=== PATIENT | male | born 1970 | race Caucasian/White ===

== ENCOUNTER 2019-12-26 19:05 | Observation (INO) | payer MEDICAID, SELFPAY ==
[2019-12-26 19:04] VITALS: BP 149/108; PULSE 117; RESP 18; TEMP 36.8; O2SAT 95
--- NOTE | 2019-12-26 19:26 | ED.PSYCH ---
HPI - Psych General Chief Complaint: Psychiatric Symptoms <Jus Valladares MD - Last Filed: 12/27/19 06:45> Stated Complaint: ETOH <Jus Valladares MD - Last Filed: 12/27/19 06:45> Time Seen by Provider: 12/26/19 19:07 <Jus Valladares MD - Last Filed: 12/27/19 06:45> History of Present Illness HPI Narrative: Patient is a 49-year-old male who presents ER with suicidal ideation and alcohol intoxication. He was found by police [place] sleeping with a guitar, backpack and other personal effects. He is hitchhiking from [place] to [facility]. He wants to go visit his mom in [place] where she is buried. His plan after sent by to her in [place] is to walk across the street to the gas station by as much alcohol as possible to then kill himself with alcohol intoxication. Patient reports she is been drinking some steel reserve cans of beer today. He reports he has history of trying to kill himself several years ago with a gun but has no access to firearms at this time and that is not his current plan to harm himself. No hallucinations. Does not want to hurt anybody else. Patient reports that he has felt febrile and has diarrhea but also reports that he has chronic diarrhea related to his cirrhosis. No dyspnea or cough. <Jus Valladares MD - Last Filed: 12/27/19 06:45> Related Data Allergies/Adverse Reactions: Allergies Allergy/AdvReac Type Severity Reaction Status Date / Time No Known Allergies Allergy Unverified 03/27/17 15:30 <Jus Valladares MD - Last Filed: 12/27/19 06:45> Review of Systems Review of Systems: All systems reviewed & are unremarkable except as noted in HPI and below <Jus Valladares MD - Last Filed: 12/27/19 06:45> Constitutional: Constitutional: Denies chills, Reports fever(s) and Denies weakness <Jus Valladares MD - Last Filed: 12/27/19 06:45> ENT: Denies nasal congestion and Denies sore throat <Jus Valladares MD - Last Filed: 12/27/19 06:45> Cardiovascular: Cardiovascular: Denies chest pain <Jus Valladares MD - Last Filed: 12/27/19 06:45> Respiratory: Respiratory: Denies cough and Denies dyspnea <Jus Valladares MD - Last Filed: 12/27/19 06:45> Gastrointestinal: Gastrointestinal: Denies abdominal pain, Reports diarrhea, Denies nausea and Denies vomiting <Jus Valladares MD - Last Filed: 12/27/19 06:45> PMFSH Past Medical History Medical History: Medical History (Updated 12/27/19 @ 18:20 by Nemesio Pearl MD) Abdominal wall hernia Cirrhosis of liver <Jus Valladares MD - Last Filed: 12/27/19 06:45> Surgical History Surgical History: Surgical History (Updated 12/26/19 @ 19:29 by Jus Valladares MD) No pertinent past surgical history <Jus Valladares MD - Last Filed: 12/27/19 06:45> Social History Social History: Social History (Updated 12/26/19 @ 19:29 by Jus Valladares MD) Alcohol intake: current <Jus Valladares MD - Last Filed: 12/27/19 06:45> Exam Narrative: Exam Narrative: GENERAL: Well-appearing, well-nourished, and in no acute distress. HEAD: Normocephalic, atraumatic. EYES: PERRL and EOMI. CHEST: Clear to auscultation. No respiratory distress. HEART: Tachycardic and regular. Normal peripheral pulses. ABDOMEN: Soft, firm enlarged liver right upper quadrant, ventral hernia is reducible, normal active bowel sounds. EXTREMITIES: Normal range of motion. 1+ edema. SKIN: Warm, dry, no rash. NEURO: Alert and oriented x3. PSYCH: Normal mood and affect but reports suicidality. No auditory hallucinations. No HI. <Jus Valladares MD - Last Filed: 12/27/19 06:45> Course Course Emergency Course: At the time of evaluation by crisis he was vomiting and they felt that he was not a good candidate for psychiatric placement at this time. Will plan to admit for observation. He is displaying no signs of acute withdrawal at this time. This seems to be most likely alcoh
[2019-12-26 19:45] VITALS: BP 135/100; PULSE 102; RESP 20
[2019-12-26 19:58] LABS: Add Urine Microscopic? YES; Amorphous Sediment Urine Few; Appearance Urine Clear (Clear); Bacteria Urine Trace /hpf; Bilirubin Urine Negative (Negative); Blood Urine Negative (Negative); Color Urine Yellow (Yellow); Glucose Urine UA Negative (Negative); Ketones Urine Negative (Negative); Leukocyte Esterase Ur Negative LEU/UL (Negative); Nitrate Urine Negative (Negative); Protein Urine Negative (Negative); RBC Urine 0-2 /hpf (0-2); Specific Grav Ur 1.005 (1.001-1.035); Squamous Epithelial Cell Urine Rare /hpf (Few); WBC Urine 0-3 /hpf
[2019-12-26 20:08] LABS: Amphetamine Screen Urine Negative (Negative); Barbiturate Screen Urine Negative (Negative); Benzodiazepines Screen Urine Negative (Negative); Cannabinoid Screen Urine Negative (Negative); Cocaine Screen Urine Negative (Negative); Methadone Screen Urine Negative (Negative); Opiate Screen Urine Negative (Negative); Phencyclidine Screen Urine Negative (Negative)
[2019-12-26 20:37] LABS: Basophils Percent Auto 0.2 % (0.2-1.2); Eosinophils Percent Auto 0.9 % (0-4.4); Hematocrit 31.5 % (42.0-52.0); Hemoglobin 10.3 g/dL (14.0-18.0); Immature Granulocyte Absolute 0.01 K/mm3 (0.00-0.031); Immature Granulocyte Percent A 0.2 % (0-0.5); Immature Platelet Fraction Pct 1.9 % (0.9-11.2); Lymphocytes Absolute Auto 1.13 K/mm3 (0.9-3.2); Lymphocytes Percent Auto 25.6 % (18.3-44.2); Mean Corpuscular HGB Conc 32.7 g/dl (32-36); Mean Corpuscular Hemoglobin 26.6 pg (26-34); Mean Corpuscular Volume 81.4 fl (80-100); Mean Platelet Volume 8.6 fl (7.4-10.4); Monocytes Absolute Auto 0.4 K/mm3 (0.1-0.6); Monocytes Percent Auto 8.2 % (2.6-8.5); Neutrophils Absolute Auto 2.9 K/mm3 (1.3-6.7); Neutrophils Percent Auto 64.9 % (45.5-73.1); Platelet Count Result 80 k/mm3 (150-375); Red Blood Count 3.87 M/mm3 (4.6-6.20); Red Cell Distribution Width 17.3 % (11.5-14.5); White Blood Count 4.4 K/mm3 (4.5-10.0)
[2019-12-26 20:48] LABS: Alanine Aminotransferase 36 U/L (4-50); Alkaline Phosphatase 112 U/L (38-126); Ammonia 23 umol/L (9-30); Aspartate Amino Transferase 102 U/L (17-59); Bilirubin,Total 1.1 mg/dL (0.2-1.3); Blood Urea Nitrogen 3 mg/dL (9-20); Calcium 8.2 mg/dL (8.4-10.2); Carbon Dioxide 26 mmol/L (22-30); Chloride 109 mmol/L (98-107); Estimated CRCL calculation 165 ml/min; Estimated Glomerular Filt Rate > 60; Glucose 100 mg/dL (75-110); Potassium 3.8 mmol/L (3.4-5.0); Sodium 142 mmol/L (137-145)
[2019-12-26 21:00] LABS: Ethanol 475 mg/dL (<10)
[2019-12-26 21:18] LABS: Thyroid Stimulating Hormone 0.546 uIU/mL (0.465-4.680)
[2019-12-27] VITALS (26 sets, daily range): BP systolic 125–140; BP diastolic 64–84; PULSE 65–111; RESP 13–20; TEMP 36.6; O2SAT 95–100; BMI 29.0
[2019-12-27 06:33] LABS: Ethanol 213 mg/dL (<10)
--- NOTE | 2019-12-27 07:32 | PC.NURSE ---
assuming care of pt. Pt resting with even rise and fall of chest. Pt has sitter in place. Pt in scrubs. Pt in safety room.
[2019-12-27 12:35] LABS: Ethanol 83 mg/dL (<10)
--- NOTE | 2019-12-27 15:23 | PC.NURSE ---
Primary RN called by this RN to update and notify her of patient vomiting. RN states that she updated EDP already.
[2019-12-27] MEDS: PANTOPRAZOLE 40 MG TABLET PO (15:47)
[2019-12-27] MEDS: ONDANSETRON HCL ODT 4 MG TABLET PO (15:47)
[2019-12-27 20:57] LABS: Hematocrit 29.7 % (42.0-52.0); Hemoglobin 9.6 g/dL (14.0-18.0); Mean Corpuscular HGB Conc 32.3 g/dl (32-36); Mean Corpuscular Hemoglobin 26.7 pg (26-34); Mean Corpuscular Volume 82.7 fl (80-100); Platelet Count Result 50 k/mm3 (150-375); Red Blood Count 3.59 M/mm3 (4.6-6.20); Red Cell Distribution Width 17.4 % (11.5-14.5)
[2019-12-27 21:07] LABS: Alanine Aminotransferase 32 U/L (4-50); Albumin Level 3.8 g/dL (3.5-5.1); Alkaline Phosphatase 108 U/L (38-126); Aspartate Amino Transferase 85 U/L (17-59); Bilirubin,Total 1.7 mg/dL (0.2-1.3); Blood Urea Nitrogen 7 mg/dL (9-20); Calcium 8.6 mg/dL (8.4-10.2); Carbon Dioxide 26 mmol/L (22-30); Chloride 104 mmol/L (98-107); Estimated CRCL calculation 200 ml/min; Estimated Glomerular Filt Rate > 60; Glucose 105 mg/dL (75-110); Lipase 92 U/L (23-300); Potassium 3.9 mmol/L (3.4-5.0); Sodium 134 mmol/L (137-145)
[2019-12-27 21:21] LABS: White Blood Count 1.4 K/mm3 (4.5-10.0)
[2019-12-27 21:26] LABS: Anisocytosis 2+ (NORMAL); Band Neutrophils Percent 2 % (0-6); Lymphocytes Absolute Manual 0.19 K/mm3 (1.1-4.5); Monocytes Absolute Manual 0.08 K/mm3 (0.1-0.90); Monocytes Percent Manual 6 % (3-9); Neutrophils Absolute Manual 1.12 K/mm3 (1.3-6.7); Neutrophils Percent Manual 78 % (46-73); Platelet Estimate Decreased (Adequate); Total Cells Counted 50
--- NOTE | 2019-12-28 00:45 | PM.IMHP ---
H&P: HPI History of Present Illness Chief complaint: Suicidal ideation, nausea and vomiting Narrative: Date and time of patient contact: 12/28/2019 at 3:50 a.m. Dennis Mann is a 49 year old male with a past medical history of cirrhosis, hepatitis-C, chronic alcoholism who was brought to the ER via EMS due to suicidal ideation. EMS was called by the police when the patient was found under and under pass sleep with a guitar, backpack and other personal affects. The patient was reportedly hitchhiking from [place] to [place]. The patient was trying to get to [place] where his mother was buried. The patient reported to ER staff that he planned to visit his mother's grave and then go immediately cross the street in by as much alcohol as he could take a minute suicide. He has tried to commit suicide few years ago with a gun. He currently does not have access to a gun. He reports that he has been binge drinking for the last week and a half since he arrived in [place]. He has been drinking as much as 12 24 oz cans of beer a day. He reports a history of alcohol withdrawal in the past. He usually becomes very anxious with his episodes of alcohol withdrawal. He stated that he started having hallucinations any time he would close his eyes yesterday afternoon. This was accompanied by nausea and vomiting which also occurs when he is withdrawing from alcohol. His emesis was slightly yellow in color he denies any hematemesis or coffee-ground emesis. He does have a history of esophageal varices which required banding multiple times. He reports that he had to have esophageal bands placed in September. He denies any chest pain or shortness of breath. He does have a chronic smoker's cough that is nonproductive. He has not been having any fevers or chills. He does admit to having some abdominal pain but relates this to his large umbilical hernia. His hernia has been soft for the most part. He has some mild pain on palpation to his hernia. His hernia soft an easily reducible. He states that he has been straining his hernia by carrying his guitar and backpack. Since arriving to the ICU the patient has not had any further vomiting. He has actually drank about 500 mL of water. He had reported having diarrhea to the ER staff but stated that he does not have any diarrhea at the time of my evaluation. His last bowel movement was 1 or 2 days ago. His last alcoholic beverage was not long before arriving to the ER on the . When the patient arrived to the ICU patient was having visual hallucinations, increased sensitivity to noise, mild diaphoresis and increased anxiety. Since initiation of Librium he reports that the symptoms have resolved. Review of Systems Review of Systems: Narrative: 12 systems were reviewed with pertinent positives and negatives per HPI. Except as documented in the HPI, all other systems were reviewed and are negative. [facility] Past Medical History Medical History (Updated 12/28/19 @ 04:34 by Leah Gimenez DO) Abdominal wall hernia Alcoholism Cirrhosis of liver Esophageal varices Esophageal bands last placed in September Hepatitis C For approximately 30 years Multiple substance abuse Surgical History Surgical History (Updated 12/28/19 @ 04:24 by Leah Gimenez DO) History of ankle surgery Left ankle ORIF History of esophagogastroduodenoscopy (EGD) Multiple EGDs with esophageal bands most recent September 2019 Family History Family History Mother Carcinoma of colon Father Alcoholism /alcohol abuse Social History Social History (Updated 12/28/19 @ 04:29 by Leah Gimenez DO) Social History: The patient lives a transient lifestyle. He most recently lived in [place] but has been hitchhiking up [facility]. He smokes a pack of cigarettes per day since he was about 10 years old. He has drank alcohol heavily since his late teens. He has a history of IV drug
[2019-12-28 01:06] VITALS: PULSE 75
[2019-12-28] MEDS: CHLORDIAZEPOXIDE 25 MG CAPSULE PO ×3 (01:46→14:24)
[2019-12-28] MEDS: LACTATED RINGERS 1,000 ML 125 ML IV CONT ×2 (01:47→09:34)
[2019-12-28] MEDS: THIAMINE HCL 200 MG/2 ML VIAL 100 MG IV PUSH (03:07)
[2019-12-28 03:20] VITALS: PULSE 74
[2019-12-28 04:36] LABS: Hematocrit 29.1 % (42.0-52.0); Hemoglobin 9.5 g/dL (14.0-18.0); Mean Corpuscular HGB Conc 32.6 g/dl (32-36); Mean Corpuscular Hemoglobin 27.3 pg (26-34); Mean Corpuscular Volume 83.6 fl (80-100); Mean Platelet Volume 8.9 fl (7.4-10.4); Platelet Count Result 41 k/mm3 (150-375); Red Blood Count 3.48 M/mm3 (4.6-6.20); Red Cell Distribution Width 17.1 % (11.5-14.5)
[2019-12-28 05:00] LABS: White Blood Count 1.3 K/mm3 (4.5-10.0)
[2019-12-28 05:02] LABS: Alanine Aminotransferase 27 U/L (4-50); Albumin Level 3.6 g/dL (3.5-5.1); Alkaline Phosphatase 88 U/L (38-126); Aspartate Amino Transferase 74 U/L (17-59); Blood Urea Nitrogen 7 mg/dL (9-20); Calcium 8.5 mg/dL (8.4-10.2); Carbon Dioxide 26 mmol/L (22-30); Chloride 101 mmol/L (98-107); Estimated CRCL calculation 165 ml/min; Estimated Glomerular Filt Rate > 60; Glucose 123 mg/dL (75-110); Magnesium 1.6 mg/dL (1.6-2.3); Phosphorus 3.7 mg/dL (2.5-4.5); Potassium 3.4 mmol/L (3.4-5.0); Sodium 133 mmol/L (137-145)
[2019-12-28 05:32] LABS: Thyroid Stimulating Hormone 0.932 uIU/mL (0.465-4.680)
[2019-12-28 06:00] VITALS: RESP 15
[2019-12-28 08:01] VITALS: BP 130/86; PULSE 70; RESP 12; TEMP 36.9; O2SAT 99
[2019-12-28] MEDS: MAGNESIUM SULF 2 GM/WATER 50ML 2 GM/50 ML BAG IVPB (08:55)
[2019-12-28] MEDS: MULTIVITAMINS THERAPEUTIC TAB (*BKC) 1 TABLET PO (08:56)
[2019-12-28] MEDS: THIAMINE HCL 100 MG TABLET PO (08:56)
[2019-12-28] MEDS: POTASSIUM CHLORIDE 20 MEQ TABLET PO (08:56)
[2019-12-28] MEDS: PANTOPRAZOLE SODIUM IV 40 MG VIAL IV PUSH (08:57)
[2019-12-28] MEDS: FOLIC ACID 1 MG TABLET PO (09:33)
[2019-12-28 10:53] LABS: Amphetamine Screen Urine Negative (Negative); Barbiturate Screen Urine Negative (Negative); Benzodiazepines Screen Urine Negative (Negative); Cannabinoid Screen Urine Negative (Negative); Cocaine Screen Urine Negative (Negative); Methadone Screen Urine Negative (Negative); Opiate Screen Urine Negative (Negative); Phencyclidine Screen Urine Negative (Negative)
[2019-12-28 11:25] VITALS: BMI 29.0
[2019-12-28 12:10] LABS: Blood Urea Nitrogen 7 mg/dL (9-20); Calcium 8.5 mg/dL (8.4-10.2); Carbon Dioxide 25 mmol/L (22-30); Chloride 101 mmol/L (98-107); Estimated CRCL calculation 165 ml/min; Estimated Glomerular Filt Rate > 60; Glucose 164 mg/dL (75-110); Magnesium 2.1 mg/dL (1.6-2.3); Potassium 3.8 mmol/L (3.4-5.0); Sodium 132 mmol/L (137-145)
[2019-12-28 12:12] LABS: Ethanol < 10 mg/dL (<10)
[2019-12-28 12:14] LABS: Hematocrit 32.7 % (42.0-52.0); Hemoglobin 10.3 g/dL (14.0-18.0); Mean Corpuscular HGB Conc 31.5 g/dl (32-36); Mean Corpuscular Hemoglobin 26.5 pg (26-34); Mean Corpuscular Volume 84.3 fl (80-100); Mean Platelet Volume 9.8 fl (7.4-10.4); Platelet Count Result 41 k/mm3 (150-375); Red Blood Count 3.88 M/mm3 (4.6-6.20); Red Cell Distribution Width 17.6 % (11.5-14.5)
[2019-12-28 12:21] LABS: White Blood Count 1.3 K/mm3 (4.5-10.0)
[2019-12-28 14:32] VITALS: BP 125/81; PULSE 80; RESP 20; TEMP 36.8; O2SAT 100
--- NOTE | 2019-12-28 15:00 | PCCCNOTE ---
Patient experienced nausea and vomitting due to excessive alcohol intake
--- NOTE | 2019-12-28 16:20 | PC.NURSE ---
Safety contract done with patient by Yodit from Crisis. Dr. Lieberman was notified by Chiquita from care coordination. Dr. Lieberman is to discharge patient.
--- NOTE | 2019-12-28 16:21 | PM.DS ---
DS: Admitting Diagnosis Admitting Diagnosis Admitting Diagnosis: Alcohol dependence with withdrawal, uncomplicated DS: Discharge Diagnosis Discharge Diagnosis (1) Alcohol withdrawal: Qualifiers: Complication of substance-induced condition: uncomplicated Qualified Code(s): F10.230 - Alcohol dependence with withdrawal, uncomplicated Code(s): F10.239 - Alcohol dependence with withdrawal, unspecified Status: Acute Assessment and Plan: Patient admitted for alcohol withdrawal symptoms. CIWA scores were ordered and Librium scheduled. Thiamin supplement supplement and multivitamin were ordered as well. Patient remained calm and cooperative without further evidence of withdrawal symptoms. Patient was educated about the benefits of abstaining from alcohol use. (2) Nausea & vomiting: Qualifiers: Vomiting Intractability: non-intractable Vomiting type: unspecified Qualified Code(s): R11.2 - Nausea with vomiting, unspecified Code(s): R11.2 - Nausea with vomiting, unspecified Status: Acute Assessment and Plan: Patient had nausea and vomiting likely secondary to alcohol withdrawal. His nausea vomiting has since resolved since admission. He was treated with Protonix. (3) Suicidal ideations: Code(s): R45.851 - Suicidal ideations Status: Acute Assessment and Plan: Patient admitted to feeling suicidal. Patient was admitted to the ICU for close observation. mixer tender remained at bedside. Crisis did evaluate the patient in the emergency room initially. We did have Crisis re-evaluate the patient and a safety contract was agreed upon. Crisis felt patient could be discharged safely. Information given to the patient about homeless shelters and other services in the area. (4) Pancytopenia: Code(s): D61.818 - Other pancytopenia Status: Acute Assessment and Plan: Likely due to the patient's chronic underlying cirrhosis, alcoholism and hepatitis. Patient states he has known leukopenia and thrombocytopenia. White count was low but stable here. Platelet count also was low but remains stable on repeat values. (5) Alcoholic intoxication: Qualifiers: Complication of substance-induced condition: uncomplicated Qualified Code(s): F10.920 - Alcohol use, unspecified with intoxication, uncomplicated Code(s): F10.929 - Alcohol use, unspecified with intoxication, unspecified Status: Acute Assessment and Plan: Resolved DS: Summary Hospital Course Reason for hospitalization: 49-year-old male to the emergency room for suicidal ideation. Please see H&P for details. Patient was intoxicated on admission. Hospital Course: As above Time Spent with Patient Time attestation: Total time spent providing and/or coordinating discharge services: 35 minutes Time spent: Greater than 30 minutes Specific discharge activities: Discussed with crisis provider. Discussed with case management and nursing. Patient Education. Exam Narrative: Exam Narrative: AF 125/81 80 Gen - NARD Chest - CTA bilaterally, nml RR CV - RRR S1/S2. telemetry showing no significant dysrhythmias Abd -soft. Liver and spleen tip noted. Ext - No pedal edema Psych - Nml mood and affect, reasonably well gromed. good eye contact. converses easily Skin - Warm and dry; 2 round dime sized black lesions tip of both great toes. DS: Data Data Completed and Pending Labs on day of discharge: Labs from last 24 hours 12/28/19 12/28/19 12/28/19 11:45 11:45 11:44 WBC 1.3 L* RBC 3.88 L Hgb 10.3 L Hct 32.7 L MCV 84.3 MCH 26.5 MCHC 31.5 L RDW 17.6 H Plt Count 41 L MPV 9.8 Immature Gran % (Auto) Neut % (Auto) Lymph % (Auto) Avery % (Auto) Eos % (Auto) Baso % (Auto) Lymph # (Auto) Avery # (Auto) Eos # (Auto) Baso # (Auto) Abs Immat Gran (auto) Absolute Neuts (auto) Abso
== END 2019-12-28 16:54 | disposition home or self-care (01) ==
LOC: ANHED 12-27 18:21 → ANHICU 12-28 06:48
PROVIDERS: Emergency Medicine; Internal Medicine; Admitting Provider Family Medicine; Emergency Provider Emergency Medicine; Visit Provider Internal Medicine
DX: F10.230 Alcohol dependence with withdrawal, uncomplicated (principal); F10.220 Alcohol dependence with intoxication, uncomplicated; R11.2 Nausea with vomiting, unspecified; R45.851 Suicidal ideations; D61.818 Other pancytopenia; B19.20 Unspecified viral hepatitis C without hepatic coma; K74.60 Unspecified cirrhosis of liver; K42.9 Umbilical hernia without obstruction or gangrene; F17.210 Nicotine dependence, cigarettes, uncomplicated; Z91.5 Personal history of self-harm
CPT/HCPCS: 36415; 80048; 80053; 80307; 81001; 82140; 83690; 83735; 84100; 84443; 85025; 85027; 85055; 96361; 96374; 96375; 99285; A9270; C9113; G0378; G0379; J3411; J3475; J7120

== ENCOUNTER 2019-12-30 18:03 | Emergency (ER) | payer MEDICAID, SELFPAY ==
[2019-12-30 18:06] VITALS: BP 111/74; PULSE 89; RESP 20; TEMP 36.7; O2SAT 95
[2019-12-30 18:34] LABS: Basophils Percent Auto 0.4 % (0.2-1.2); Eosinophils Percent Auto 1.6 % (0-4.4); Hematocrit 29.3 % (42.0-52.0); Hemoglobin 9.4 g/dL (14.0-18.0); Immature Granulocyte Absolute 0.01 K/mm3 (0.00-0.031); Immature Granulocyte Percent A 0.4 % (0-0.5); Immature Platelet Fraction Pct 2.3 % (0.9-11.2); Lymphocytes Absolute Auto 0.93 K/mm3 (0.9-3.2); Lymphocytes Percent Auto 37.1 % (18.3-44.2); Mean Corpuscular HGB Conc 32.1 g/dl (32-36); Mean Corpuscular Hemoglobin 27.4 pg (26-34); Mean Corpuscular Volume 85.4 fl (80-100); Mean Platelet Volume 9.5 fl (7.4-10.4); Monocytes Absolute Auto 0.2 K/mm3 (0.1-0.6); Monocytes Percent Auto 6.8 % (2.6-8.5); Neutrophils Absolute Auto 1.4 K/mm3 (1.3-6.7); Neutrophils Percent Auto 53.7 % (45.5-73.1); Platelet Count Result 53 k/mm3 (150-375); Red Blood Count 3.43 M/mm3 (4.6-6.20); White Blood Count 2.5 K/mm3 (4.5-10.0)
[2019-12-30 18:44] LABS: Alanine Aminotransferase 33 U/L (4-50); Albumin Level 3.7 g/dL (3.5-5.1); Alkaline Phosphatase 96 U/L (38-126); Aspartate Amino Transferase 88 U/L (17-59); Bilirubin,Total 0.5 mg/dL (0.2-1.3); Blood Urea Nitrogen 7 mg/dL (9-20); Calcium 7.9 mg/dL (8.4-10.2); Carbon Dioxide 26 mmol/L (22-30); Chloride 114 mmol/L (98-107); Estimated Glomerular Filt Rate > 60; Glucose 121 mg/dL (75-110); Potassium 3.9 mmol/L (3.4-5.0); Sodium 146 mmol/L (137-145)
--- NOTE | 2019-12-30 18:59 | ED.PSYCH ---
HPI - Psych General Chief Complaint: Psychiatric Symptoms <Nemesio Pearl MD - Last Filed: 12/30/19 21:20> Stated Complaint: SI <Nemesio Pearl MD - Last Filed: 12/30/19 21:20> Time Seen by Provider: 12/30/19 18:58 <Nemesio Pearl MD - Last Filed: 12/30/19 21:20> History of Present Illness HPI Narrative: [place] intoxicated in gas station parking lot. Told police he was suicidal. He presented here with same story on 12/25. He was evaluated by crisis and they initially wanted to admit him to a psychiatric facility, but he was vomiting so they would not take him. He was observed in the hospital and reevaluated by crisis. they then discharged him on a safety contract. <Nemesio Pearl MD - Last Filed: 12/30/19 21:20> Related Data Allergies/Adverse Reactions: Allergies Allergy/AdvReac Type Severity Reaction Status Date / Time No Known Allergies Allergy Unverified 03/27/17 15:30 <Nemesio Pearl MD - Last Filed: 12/30/19 21:20> Review of Systems Review of Systems: ROS unobtainable: Yes other (intoxication and lack of cooperation) <Nemesio Pearl MD - Last Filed: 12/30/19 21:20> [facility] Past Medical History Medical History: Medical History Abdominal wall hernia Alcoholism Cirrhosis of liver Esophageal varices Esophageal bands last placed in September Hepatitis C For approximately 30 years Multiple substance abuse <Nemesio Pearl MD - Last Filed: 12/30/19 21:20> Surgical History Surgical History: Surgical History History of ankle surgery Left ankle ORIF History of esophagogastroduodenoscopy (EGD) Multiple EGDs with esophageal bands most recent September 2019 <Nemesio Pearl MD - Last Filed: 12/30/19 21:20> Family History Family History: Family History Mother Carcinoma of colon Father Alcoholism /alcohol abuse <Nemesio Pearl MD - Last Filed: 12/30/19 21:20> Social History Social History: Social History Social History: The patient lives a transient lifestyle. He most recently lived in [place] but has been hitchhiking up [facility]. He smokes a pack of cigarettes per day since he was about 10 years old. He has drank alcohol heavily since his late teens. He has a history of IV drug use but states he has not used IV drugs in quite a long time. Smoking packs per day: 1 Smoking cigarettes per day: 20.0 Years smoked: 39 Smoking pack-years: 39.00 Smoking status: Current every day smoker Alcohol intake: current Substance use: former Substance use type: crack/cocaine, heroin, IV drugs and methamphetamine Other substance usage details: Patient states when relapses can drink 12 plus 24oz beers. Gender identity (if verbalized by the patient): Male Spiritual care concerns: No <Nemesio Pearl MD - Last Filed: 12/30/19 21:20> Exam Const: General: no acute distress and alert <Nemesio Pearl MD - Last Filed: 12/30/19 21:20> Orientation/consciousness: patient oriented x3 <Nemesio Pearl MD - Last Filed: 12/30/19 21:20> HENMT: Head: normal to inspection <Nemesio Pearl MD - Last Filed: 12/30/19 21:20> Neck: Neck: normal visual inspection and no lymphadenopathy <Nemesio Pearl MD - Last Filed: 12/30/19 21:20> Chest: Chest palpation & inspection: no tenderness <Nemesio Pearl MD - Last Filed: 12/30/19 21:20> Resp: Effort & Inspection: normal respiratory effort <Nemesio Pearl MD - Last Filed: 12/30/19 21:20> Auscultation: clear to auscultation bilaterally, no rales, no rhonchi and no wheezes <Nemesio Pearl MD - Last Filed: 12/30/19 21:20> Cardio: Jugular venous distension: no JVD <Nemesio Pearl MD - Last Filed: 12/30/19
[2019-12-30 19:07] LABS: Add Urine Microscopic? YES; Appearance Urine Clear (Clear); Bilirubin Urine Negative (Negative); Blood Urine Negative (Negative); Color Urine Straw (Yellow); Glucose Urine UA Negative (Negative); Ketones Urine Negative (Negative); Leukocyte Esterase Ur Negative LEU/UL (Negative); Nitrate Urine Negative (Negative); Protein Urine Negative (Negative); RBC Urine 0-2 /hpf (0-2); Specific Grav Ur 1.009 (1.001-1.035); Squamous Epithelial Cell Urine Rare /hpf (Few); WBC Urine 0-3 /hpf
[2019-12-30 19:13] LABS: Ethanol 440 mg/dL (<10)
[2019-12-30 19:14] LABS: Thyroid Stimulating Hormone 0.802 uIU/mL (0.465-4.680)
[2019-12-30 19:22] LABS: Amphetamine Screen Urine Negative (Negative); Barbiturate Screen Urine Negative (Negative); Benzodiazepines Screen Urine Positive (Negative); Cannabinoid Screen Urine Negative (Negative); Cocaine Screen Urine Negative (Negative); Methadone Screen Urine Negative (Negative); Opiate Screen Urine Negative (Negative); Phencyclidine Screen Urine Negative (Negative)
[2019-12-30 21:26] VITALS: BP 123/71; PULSE 92; RESP 18; TEMP 36.6; O2SAT 99
[2019-12-31 04:31] VITALS: BP 110/70; PULSE 70; RESP 16; TEMP 36.7; O2SAT 99
[2019-12-31 07:23] VITALS: BP 119/75; PULSE 72; RESP 18; O2SAT 97
--- NOTE | 2019-12-31 07:28 | PC.NURSE ---
Care assumed at this time, report given by MARY ELLEN Doe.
[2019-12-31 12:41] VITALS: BP 137/84; PULSE 76; RESP 16; O2SAT 96
[2019-12-31 12:58] LABS: Ethanol 29 mg/dL (<10)
[2019-12-31 14:49] VITALS: BP 171/88; PULSE 100; RESP 19; O2SAT 100
== END 2019-12-31 14:51 | disposition home or self-care (01) ==
PROVIDERS: Emergency Medicine; Emergency Provider General Practice
DX: F10.229 Alcohol dependence with intoxication, unspecified (principal); Y90.8 Blood alcohol level of 240 mg/100 ml or more; F17.210 Nicotine dependence, cigarettes, uncomplicated; B19.20 Unspecified viral hepatitis C without hepatic coma; K74.60 Unspecified cirrhosis of liver
CPT/HCPCS: 36415; 80053; 80307; 81001; 84443; 85025; 85055; 99284

== ENCOUNTER 2020-01-02 16:03 | Emergency (ER) | payer MEDICAID, SELFPAY ==
[2020-01-02 16:02] VITALS: BP 121/82; PULSE 74; RESP 15; TEMP 37.2; O2SAT 95
[2020-01-02 16:38] LABS: Add Urine Microscopic? NO; Appearance Urine Clear (Clear); Bilirubin Urine Negative (Negative); Blood Urine Negative (Negative); Color Urine Colorless (Yellow); Glucose Urine UA Negative (Negative); Ketones Urine Negative (Negative); Leukocyte Esterase Ur Negative LEU/UL (Negative); Nitrate Urine Negative (Negative); Protein Urine Negative (Negative); Urobilinogen Urine Negative mg/dL (<2.0)
--- NOTE | 2020-01-02 16:39 | ED.ALCOHOL ---
HPI - Alcohol General Chief Complaint: Alcohol <Marito Rm PA-C - Last Filed: 01/02/20 21:18> Stated Complaint: ETOH <Marito Rm PA-C - Last Filed: 01/02/20 21:18> Time Seen by Provider: 01/02/20 16:15 <Marito Rm PA-C - Last Filed: 01/02/20 21:18> Source: patient, EMS and old records reviewed <Marito Rm PA-C - Last Filed: 01/02/20 21:18> Mode of arrival: EMS <Marito Rm PA-C - Last Filed: 01/02/20 21:18> Limitations: no limitations <Marito Rm PA-C - Last Filed: 01/02/20 21:18> History of Present Illness HPI narrative: Patient is a 49-year-old gentleman who presents intoxicated with history of alcohol abuse has had frequent trips to the emergency department patient on arrival to emergency department resting comfortably in the room denying suicidal or homicidal ideation. Patient admits to alcohol abuse denies any complaints other than being intoxicated was brought in for being found to be intoxicated [place] public park <Marito Rm PA-C - Last Filed: 01/02/20 21:18> Related Data Allergies/Adverse Reactions: Allergies Allergy/AdvReac Type Severity Reaction Status Date / Time No Known Allergies Allergy Verified 01/02/20 16:21 <Marito Rm PA-C - Last Filed: 01/02/20 21:18> Review of Systems Review of Systems: All systems reviewed & are unremarkable except as noted in HPI and below <Marito Rm PA-C - Last Filed: 01/02/20 21:18> [facility] Past Medical History Medical History: Medical History Abdominal wall hernia Alcoholism Cirrhosis of liver Esophageal varices Esophageal bands last placed in September Hepatitis C For approximately 30 years Multiple substance abuse <Marito Rm PA-C - Last Filed: 01/02/20 21:18> Surgical History Surgical History: Surgical History History of ankle surgery Left ankle ORIF History of esophagogastroduodenoscopy (EGD) Multiple EGDs with esophageal bands most recent September 2019 <Marito Rm PA-C - Last Filed: 01/02/20 21:18> Social History Social History: Social History Social History: The patient lives a transient lifestyle. He most recently lived in [place] but has been hitchhiking up [facility]. He smokes a pack of cigarettes per day since he was about 10 years old. He has drank alcohol heavily since his late teens. He has a history of IV drug use but states he has not used IV drugs in quite a long time. Smoking packs per day: 1 Smoking cigarettes per day: 20.0 Years smoked: 39 Smoking pack-years: 39.00 Smoking status: Current every day smoker Alcohol intake: current Substance use: former Substance use type: crack/cocaine, heroin, IV drugs and methamphetamine Other substance usage details: Patient states when relapses can drink 12 plus 24oz beers. Gender identity (if verbalized by the patient): Male Spiritual care concerns: No <Marito Rm PA-C - Last Filed: 01/02/20 21:18> Exam Narrative: Exam Narrative: GENERAL: Well-appearing, well-nourished, and in no acute distress. HEAD: Normocephalic, atraumatic. EYES: PERRLA and EOMI. ENT: Nares clear, no rhinorrhea or epistaxis. Mucous membranes moist. CHEST: Clear to auscultation. No respiratory distress. No wheezes rales or rhonchi HEART: Regular rate and rhythm. No murmur heard. Normal peripheral pulses. ABDOMEN: Soft, nontender, nondistended EXTREMITIES: Normal range of motion. No edema. SKIN: Warm, dry, no rash. NEURO: No focal deficits. Cranial nerves II through XII grossly intact PSYCH: Patient intoxicated <Marito Rm PA-C - Last Filed: 01/02/20 21:18> Course Reevaluation(s) Reevaluation #1: Patient in the room has been fed sleeping in no distress at this <Marito Rucker
[2020-01-02 16:43] LABS: Specific Grav Ur 1.004 (1.001-1.035)
[2020-01-02 16:48] LABS: Basophils Percent Auto 0.3 % (0.2-1.2); Eosinophils Percent Auto 0.6 % (0-4.4); Hematocrit 33.9 % (42.0-52.0); Hemoglobin 10.9 g/dL (14.0-18.0); Immature Granulocyte Absolute 0.01 K/mm3 (0.00-0.031); Immature Granulocyte Percent A 0.3 % (0-0.5); Lymphocytes Absolute Auto 1.03 K/mm3 (0.9-3.2); Lymphocytes Percent Auto 30.9 % (18.3-44.2); Mean Corpuscular HGB Conc 32.2 g/dl (32-36); Mean Corpuscular Hemoglobin 27.3 pg (26-34); Mean Corpuscular Volume 84.8 fl (80-100); Mean Platelet Volume 10.4 fl (7.4-10.4); Monocytes Absolute Auto 0.3 K/mm3 (0.1-0.6); Monocytes Percent Auto 8.4 % (2.6-8.5); Neutrophils Percent Auto 59.5 % (45.5-73.1); Platelet Count Result 67 k/mm3 (150-375); Red Cell Distribution Width 18.7 % (11.5-14.5); White Blood Count 3.3 K/mm3 (4.5-10.0)
[2020-01-02 16:56] LABS: Amphetamine Screen Urine Negative (Negative); Barbiturate Screen Urine Negative (Negative); Benzodiazepines Screen Urine Positive (Negative); Cannabinoid Screen Urine Negative (Negative); Cocaine Screen Urine Negative (Negative); Methadone Screen Urine Negative (Negative); Opiate Screen Urine Negative (Negative); Phencyclidine Screen Urine Negative (Negative)
[2020-01-02 17:13] VITALS: BP 127/87; PULSE 78; RESP 13; O2SAT 94
[2020-01-02 17:18] LABS: Ethanol 538 mg/dL (<10)
--- NOTE | 2020-01-02 17:59 | PC.NURSE ---
phlebotomy in room to draw labs due to difficult stick/unsuccessful attempts
[2020-01-02 18:32] VITALS: BP 124/85; PULSE 80; RESP 16; TEMP 36.6; O2SAT 94
[2020-01-02 18:40] LABS: Alanine Aminotransferase 37 U/L (4-50); Albumin Level 3.9 g/dL (3.5-5.1); Alkaline Phosphatase 82 U/L (38-126); Aspartate Amino Transferase 101 U/L (17-59); Bilirubin,Total 0.8 mg/dL (0.2-1.3); Blood Urea Nitrogen 6 mg/dL (9-20); Calcium 8.5 mg/dL (8.4-10.2); Carbon Dioxide 22 mmol/L (22-30); Chloride 113 mmol/L (98-107); Estimated CRCL calculation 200 ml/min; Estimated Glomerular Filt Rate > 60; Glucose 139 mg/dL (75-110); Sodium 145 mmol/L (137-145)
[2020-01-02 20:51] VITALS: BP 125/84; PULSE 78; RESP 16; O2SAT 99
--- NOTE | 2020-01-02 21:19 | PC.NURSE ---
pt remains asleep, no resp distress , no change in cond.
[2020-01-03 01:25] VITALS: BP 126/81; PULSE 78; RESP 18; O2SAT 98
--- NOTE | 2020-01-03 01:26 | PC.NURSE ---
pt asleep, no change in cond.
[2020-01-03 06:03] VITALS: BP 127/74; PULSE 78; RESP 16; TEMP 37.2; O2SAT 96
[2020-01-03 11:59] VITALS: BP 134/70; PULSE 91; O2SAT 94
[2020-01-03 12:13] LABS: Ethanol 23 mg/dL (<10)
[2020-01-03] MEDS: MECLIZINE HCL 25 MG TABLET PO (13:11)
--- NOTE | 2020-01-03 13:11 | PC.NURSE ---
Patients IV painful to flush. Does not want another one placed. Okay per Dr West to change Zofran to ODT.
[2020-01-03] MEDS: ONDANSETRON HCL ODT 4 MG TABLET (13:12)
[2020-01-03 14:47] VITALS: BP 123/86; PULSE 89; RESP 17; O2SAT 98
== END 2020-01-03 14:47 | disposition home or self-care (01) ==
PROVIDERS: Emergency Medicine Emergency Medical Services; Emergency Provider General Practice
DX: F10.229 Alcohol dependence with intoxication, unspecified (principal); Y90.8 Blood alcohol level of 240 mg/100 ml or more; K74.60 Unspecified cirrhosis of liver; B19.20 Unspecified viral hepatitis C without hepatic coma; F17.210 Nicotine dependence, cigarettes, uncomplicated
CPT/HCPCS: 36415; 80053; 80307; 81003; 84443; 85025; 99283; A9270

== ENCOUNTER 2023-11-07 06:21 | Emergency (ER) | payer SELFPAY ==
[2023-11-07] VITALS (8 sets, daily range): BP systolic 110–141; BP diastolic 83–100; PULSE 69–82; RESP 12–18; TEMP 35.5; O2SAT 97–100
--- NOTE | 2023-11-07 07:18 | ECG_ITS ---
SEE SCANNED COPY FOR CONFIRMED REPORT MTDD
--- NOTE | 2023-11-07 07:19 | ED.ALCOHOL ---
HPI - Alcohol General Chief Complaint: Alcohol Stated Complaint: ETOH, requesting detox Time Seen by Provider: 11/07/23 06:53 History of Present Illness HPI narrative: 53-year-old male presenting to the emergency department for evaluation of alcohol intoxication. Patient states he does have history of cirrhosis. Patient states he is homeless. Patient was sleeping by in the [place] and it started to rain so he began to drink heavily. Patient was brought in to the emergency department by EMS. At time of evaluation patient denies any complaints. Patient did tell the nursing staff that if he is discharged he is going to become suicidal. Related Data Allergies Allergy/AdvReac Type Severity Reaction Status Date / Time No Known Allergies Allergy Verified 11/07/23 06:38 Review of Systems Review of Systems: All systems reviewed & are unremarkable except as noted in HPI and below PMFSH Past Medical History Medical History (Updated 11/07/23 @ 11:16 by Donis Dubose MD) Abdominal wall hernia Alcoholism Cirrhosis of liver Esophageal varices Esophageal bands last placed in September Hepatitis C For approximately 30 years Multiple substance abuse Surgical History Surgical History History of ankle surgery Left ankle ORIF History of esophagogastroduodenoscopy (EGD) Multiple EGDs with esophageal bands most recent September 2019 Family History Family History Mother Carcinoma of colon Father Alcoholism /alcohol abuse Social History Social History Social History: The patient lives a transient lifestyle. He most recently lived in [place] but has been hitchhiking up [facility]. He smokes a pack of cigarettes per day since he was about 10 years old. He has drank alcohol heavily since his late teens. He has a history of IV drug use but states he has not used IV drugs in quite a long time. Smoking packs per day: 1 Smoking cigarettes per day: 20.0 Years smoked: 39 Smoking pack-years: 39.00 Smoking status: Current every day smoker Alcohol intake: current Alcohol use details: He drinks 12 24 oz cans of beer a day. Substance use: former Substance use type: crack/cocaine, heroin, IV drugs and methamphetamine Other substance usage details: Patient states when relapses can drink 12 plus 24oz beers. Living arrangements: homeless Gender identity (if verbalized by the patient): Male Sexual Orientation (if Verbalized by the Patient): Straight or Heterosexual Spiritual care concerns: No Exam Narrative: APPEARANCE: Well appearing, no pain, no distress, well-nourished. HEAD: normocephalic, atraumatic. EYES: PERRLA/EOMI, conjunctivae clear. NOSE: Normal no drainage EARS:TMS clear with good light reflex. THROAT: Pharynx clear, no exudate. NECK: Supple. No adenopathy, no masses. RESPIRATORY: Airway patent, respirations nonlabored. Clear to auscultation bilaterally, no rales, rhonchi, wheezing. CARDIOVASCULAR: Regular rate and rhythm without murmurs rubs or gallops. ABDOMINAL: Soft, nontender, nondistended, normal bowel sounds MUSCULOSKELETAL: Moves all extremities. Strength/ROM intact, No edema, No calf tenderness. NEURO: Alert. Cranial nerves II through XII intact. Good gait. Good coordination SKIN: Warm, dry. Normal Color Course Vital Signs Vital signs: Vital Signs Temperature 96 F L 11/07/23 06:22 Pulse Rate 82 11/07/23 06:22 Respiratory Rate 16 11/07/23 06:22 Blood Pressure 134/93 H 11/07/23 06:22 Pulse Oximetry 98 11/07/23 06:22 Oxygen Delivery Room Air 11/07/23 06:22 Temperature 96 F L 11/07/23 06:22 Pulse Rate 71 11/07/23 10:30 Respiratory Rate 18 11/07/23 10:30 Blood Pressure 128/97 H 11/07/23 10:30 Pulse Oximetry 100 11/07/23 10:30 Oxygen Delivery Room Air 11/06
[2023-11-07 07:53] LABS: Appearance Urine Clear (Clear); Bilirubin Urine Negative (Negative); Blood Urine Negative (Negative); Color Urine Yellow (Yellow); Glucose Urine UA Negative (Negative); Ketones Urine Negative (Negative); Leukocyte Esterase Ur Negative LEU/UL (Negative); Nitrate Urine Negative (Negative); Protein Urine Negative (Negative)
[2023-11-07 07:54] LABS: Add Urine Microscopic? NO
[2023-11-07 08:00] LABS: Basophils Percent Auto 0.5 % (0.2-1.2); Hematocrit 39.5 % (42.0-52.0); Hemoglobin 13.2 g/dL (14.0-18.0); Immature Granulocyte Absolute 0.02 K/mm3 (0.00-0.031); Immature Platelet Fraction Pct 5.9 % (0.9-11.2); Lymphocytes Absolute Auto 0.63 K/mm3 (0.9-3.2); Lymphocytes Percent Auto 31.5 % (18.3-44.2); Mean Corpuscular HGB Conc 33.4 g/dl (32-36); Mean Corpuscular Hemoglobin 32.7 pg (26-34); Mean Corpuscular Volume 97.8 fl (80-100); Mean Platelet Volume 10.8 fl (7.4-10.4); Monocytes Absolute Auto 0.3 K/mm3 (0.1-0.6); Platelet Count Result 45 k/mm3 (150-375); Red Blood Count 4.04 M/mm3 (4.6-6.20); Red Cell Distribution Width 15.5 % (11.5-14.5)
[2023-11-07 08:02] LABS: Acetaminophen < 10 ug/mL (10-30); Ethanol 296 mg/dL (<10); Salicylate < 1.0 mg/dL (2-20)
[2023-11-07 08:02] LABS: Lactic Acid Reflex 2.3 mmol/L (0.7-2.0)
[2023-11-07 08:27] LABS: Influenza A QL RT-PCR Negative (Negative); Influenza B QL RT-PCR Negative (Negative); RSV RNA, RT-PCR Negative (Negative); SARS-CoV-2 RNA PCR Negative (Negative)
[2023-11-07 08:30] LABS: Alanine Aminotransferase 102 U/L (6-50); Alkaline Phosphatase 109 U/L (38-126); Anion Gap 8 mmol/L (4-12); Aspartate Amino Transferase 151 U/L (17-59); Blood Urea Nitrogen 7 mg/dL (9-20); Calcium 8.6 mg/dL (8.4-10.2); Carbon Dioxide 24 mmol/L (22-30); Chloride 111 mmol/L (98-107); Estimated CRCL calculation 191 ml/min; Estimated Glomerular Filt Rate > 60; Glucose 116 mg/dL (65-110); Lipase 169 U/L (23-300); Sodium 143 mmol/L (137-145)
[2023-11-07] MEDS: SODIUM CHLORIDE 0.9% IV 1,000 ML 999 ML IV CONT (08:31)
[2023-11-07 08:38] LABS: INR 1.3; Prothrombin Time 16.6 Seconds (11.1-14.7)
--- NOTE | 2023-11-07 09:56 | PCCCNOTE ---
Met with pt regarding discharge plans and he reports he is unhoused and has all of his belongings with him. Discussed pt going to a local homeless senior care and he is agreeable and willing to go to the [facility] and states he has been there before and they are cool . Pt will be provided with a cab voucher for transport. MARY ELLEN Valles Charge nurse aware of plan.
[2023-11-07 10:49] LABS: Reflex Lactic Acid Yes or No Add Lactic
[2023-11-07 10:56] LABS: Ethanol 279 mg/dL (<10)
--- NOTE | 2023-11-07 10:56 | PC.NURSE ---
Trying to awake pt and get him ready to go. Told pt that we had a snf and a cab set up for him. Told him it was [place] and he said den no, im not going there. Thats where mantee wanted me to go and i wouldn't go Pt states that [place], im a white boy, i dont belong in [facility] . When asked where he wants to go he states i guess ill head [place]
== END 2023-11-07 11:40 | disposition home or self-care (01) ==
PROVIDERS: Emergency Provider Emergency Medicine
DX: F10.129 Alcohol abuse with intoxication, unspecified (principal); Z20.822 Contact with and (suspected) exposure to COVID-19; F17.210 Nicotine dependence, cigarettes, uncomplicated; K74.60 Unspecified cirrhosis of liver
CPT/HCPCS: 36415; 80053; 80307; 81003; 83605; 83690; 84443; 85025; 85055; 85610; 85730; 87637; 93005; 96360; 96361; 99283; J7030